=== PATIENT | female | born 1940 | race Caucasian/White ===

== ENCOUNTER 2019-10-28 15:28 | Inpatient (IN) | payer MEDICARE, BC, SELFPAY ==
--- NOTE | ~2019-10-28 | NM_ITS ---
EXAMINATION: NM renal flow and function DATE: 10/29/2019 16:08 INDICATION: Acute renal insufficiency. TECHNIQUE: 7.4 mCi Tc-99m MAG3 was administered IV. The patient was scanned in the supine position. A posterior abdominal radionuclide angiogram was obtained. A subsequent time course of static images of the kidneys, ureters, and bladder was obtained. COMPARISON: None FINDINGS: The posterior abdominal radionuclide angiogram and sequential static images show decreased size of the right kidney. Peak renal parenchymal uptake was 20 min in right kidney and 2 min in left kidney (normal peak 3-5 minutes). The relative early renal uptake was 17% on the right and 83% on th e left (<40% is abnormal). No abnormalities of the ureters or bladder are seen. T1/2 for clearance of activity from the right kidney and proximal collecting system could not be kartik ured. T1/2 for clearance of activity from the left kidney and proximal collecting system was 10 minutes. IMPRESSION: 1. Moderate atrophy of right kidney, which provides 17% of total renal function. Reviewed, dictated and finalized at location A. IMPRESSION: 1. Moderate atrophy of right kidney, which provides 17% of total renal functio n.
--- NOTE | ~2019-10-28 | XR_ITS ---
EXAMINATION: XR chest 2V DATE: 10/30/2019 10:58 INDICATION: Shortness of breath TECHNIQUE: frontal and lateral views of the chest were obtained. COMPARISON: None FINDINGS: Mild hyperexpansion of lungs. No focal airspace opacities, pleural effusion, pulmonary edema or pneum othorax. The cardiomediastinal silhouette is normal. Mild thoracic spondylosis. Cholecystectomy clips in the right upper quadrant. IMPRESSION: 1. No acute cardiopulmonary disease. Reviewed, dictated and finalized at location B.
[2019-10-28 15:32] VITALS: BP 156/80; PULSE 68; RESP 18; TEMP 36.8; O2SAT 100
[2019-10-28 15:54] LABS: Basophils Absolute Auto 0.1 K/mm3 (0.0-0.1); Basophils Percent Auto 0.5 % (0.2-1.2); Eosinophils Absolute Auto 0.1 K/mm3 (0-0.3); Eosinophils Percent Auto 0.6 % (0-4.4); Hematocrit 38.3 % (37.0-47.0); Hemoglobin 13.9 g/dL (12.0-15.0); Immature Granulocyte Absolute 0.03 K/mm3 (0.00-0.031); Immature Granulocyte Percent A 0.3 % (0-0.5); Lymphocytes Absolute Auto 2.33 K/mm3 (0.9-3.2); Lymphocytes Percent Auto 20.9 % (18.3-44.2); Mean Corpuscular HGB Conc 36.3 g/dl (32-36); Mean Corpuscular Hemoglobin 30.5 pg (26-34); Mean Corpuscular Volume 84.2 fl (80-100); Mean Platelet Volume 9.4 fl (7.4-10.4); Monocytes Absolute Auto 0.9 K/mm3 (0.1-0.6); Monocytes Percent Auto 8.3 % (2.6-8.5); Neutrophils Absolute Auto 7.7 K/mm3 (1.3-6.7); Neutrophils Percent Auto 69.4 % (45.5-73.1); Platelet Count Result 354 k/mm3 (150-375); Red Blood Count 4.55 M/mm3 (4.2-5.4); Red Cell Distribution Width 11.4 % (11.5-14.5); White Blood Count 11.2 K/mm3 (4.5-10.0)
[2019-10-28 16:07] LABS: Anion Gap 14 mmol/L (8-16); Blood Urea Nitrogen 18 mg/dL (7-17); Calcium 9.4 mg/dL (8.4-10.2); Carbon Dioxide 26 mmol/L (22-30); Chloride 80 mmol/L (98-107); Estimated Glomerular Filt Rate 48; Glucose 114 mg/dL (65-105); Potassium 3.8 mmol/L (3.4-5.0); Sodium 120 mmol/L (137-145)
--- NOTE | 2019-10-28 16:13 | ED.RECABL ---
HPI - Recheck/Abnormal Lab/Rx General Chief Complaint: Recheck/Abnormal Lab/Rx Stated Complaint: low sodium Time Seen by Provider: 10/28/19 15:56 History of Present Illness HPI narrative: She had labs drawn today to monitor her creatinine following a CT angiogram . She was called at home due to low sodium and told that she needed to come to the emergency department to be seen. She says that she has been drinking extra water since getting contrast. She has been feeling weak, dizzy, and occasionally fuzzy. Related Data Home Medications Medication Instructions Recorded Confirmed atenolol 25 mg PO DAILY 10/28/19 atorvastatin 10 mg PO DAILY 10/28/19 calcium carbonate [Calcium 500] 500 mg PO DAILY 10/28/19 cholecalciferol (vitamin D3) 25 mcg PO DAILY 10/28/19 [Vitamin D3] hydrochlorothiazide 25 mg PO DAILY 10/28/19 multivitamin [Multiple Vitamins] 1 tablet PO DAILY 10/28/19 olmesartan 40 mg PO DAILY 10/28/19 trazodone 50 mg PO HS 10/28/19 Allergies Allergy/AdvReac Type Severity Reaction Status Date / Time Sulfa (Sulfonamide Allergy Rash Verified 10/28/19 15:40 Antibiotics) terazosin Allergy Unknown Verified 10/28/19 15:40 Review of Systems Review of Systems: All systems reviewed & are unremarkable except as noted in HPI and below Constitutional: Constitutional: Denies chills, Denies fever(s) and Reports weakness Cardiovascular: Cardiovascular: Denies chest pain Respiratory: Respiratory: Denies dyspnea Gastrointestinal: Gastrointestinal: Denies abdominal pain, Denies constipation, Denies diarrhea, Reports nausea and Denies vomiting Genitourinary: Genitourinary: Reports nocturia, Denies dysuria and Denies urinary incontinence Musculoskeletal: Musculoskeletal: Denies back pain Neurologic: Reports weakness PMFSH Past Medical History Medical History (Updated 10/28/19 @ 17:33 by Adiel Terry MD) CKD (chronic kidney disease) HTN (hypertension) Social History Social History Gender identity (if verbalized by the patient): Female Exam Const: General: no acute distress and alert Nutritional Appearance: thin Orientation/consciousness: patient oriented x3 HENMT: Head: normal to inspection Resp: Effort & Inspection: normal respiratory effort Auscultation: clear to auscultation bilaterally Cardio: Rate: regular rate Rhythm: regular rhythm GI: Other: soft, nontender Skin: General skin exam: normal color Neuro: General: patient oriented x3, moves all extremities and CN's II-XI intact bilaterally Speech: normal speech Extrem: General: normal to inspection and no edema Course Vital Signs Vital signs: Vital Signs Temperature 36.8 C 10/28/19 15:32 Pulse Rate 68 10/28/19 15:32 Respiratory Rate 18 10/28/19 15:32 Blood Pressure 156/80 H 10/28/19 15:32 Pulse Oximetry 100 10/28/19 15:32 Temperature 36.8 C 10/28/19 15:32 Pulse Rate 68 10/28/19 15:32 Respiratory Rate 18 10/28/19 15:32 Blood Pressure 156/80 H 10/28/19 15:32 Pulse Oximetry 100 10/28/19 15:32 MDM - Recheck/Abnormal Lab/Rx MDM Narrative Medical decision making narrative: Case discussed with Dr. Jaffe. Will gently hydrate, hold HCTZ, and recheck labs Medical Records Attestation: I reviewed the patient's medical records. Lab Data Attestation: I reviewed the patient's lab results. Result diagrams: 10/28/19 15:46 10/28/19 15:46 Labs: Lab Results 10/28/19 10/28/19 Range/Units 15:46 15:46 WBC 11.2 H (4.5-10.0) K/mm3 RBC 4.55 (4.2-5.4) M/mm3 Hgb 13.9 (12.0-15.0) g/dL Hct 38.3 (37.0-47.0) % MCV 84.2 (80-100) fl MCH 30.5 (26-34) pg MCHC 36.3 H (32-36) g/dl RDW 11.4 L (11.5-14.5) % Plt Count 354 (150-375) k/mm3 MPV 9.4 (7.4-10.4) fl Immature Gran % (Auto) 0.3 (0-0.5) % Neut % (Auto) 69.4 (45.5-73.1) % Lymph % (Auto) 20.9 (18.3-44.2) % Mo
[2019-10-28] MEDS: SODIUM CHLORIDE 0.9% IV 1,000 ML 50 ML IV CONT ×2 (16:38→22:17)
[2019-10-28 17:37] LABS: Add Urine Microscopic? YES; Appearance Urine Clear (Clear); Bacteria Urine Trace /hpf; Bilirubin Urine Negative (Negative); Blood Urine Negative (Negative); Color Urine Straw (Yellow); Glucose Urine UA Negative (Negative); Ketones Urine Negative (Negative); Leukocyte Esterase Ur Negative LEU/UL (Negative); Mucus Urine Rare /lpf; Nitrate Urine Negative (Negative); Protein Urine Negative (Negative); Specific Grav Ur 1.006 (1.001-1.035); Squamous Epithelial Cell Urine Rare /hpf (Few); Urobilinogen Urine Negative mg/dL (<2.0); WBC Urine 0-3 /hpf
[2019-10-28 17:38] LABS: Creatinine Urine 44.1 mg/dL
[2019-10-28 17:39] LABS: Sodium Urine Random 30 meq/L
--- NOTE | 2019-10-28 19:19 | PC.NURSE ---
report received at this time. pt ambulatory to restroom independently without difficulty. awaiting to go upstairs. pt in NAD.
--- NOTE | 2019-10-28 19:52 | ADMGEN ---
This patient, Carlyn Mendes, was admitted to Medical Room 245-. Patient/family oriented to hospital policies and general routines including ID bracelet, bed and alarms, visiting hours, pain management, procedures, bathroom and other care routines, personal items, smoking policy, room service/diet, and visiting hours. Valuables list has been completed. Information on how to activate the Rapid Response Team has been discussed. Patient/Family are encouraged to report perceived risks to care and to ask questions if they do not understand what they are told or what they should do.
[2019-10-28 20:31] LABS: Anion Gap 12 mmol/L (8-16); Blood Urea Nitrogen 16 mg/dL (7-17); Calcium 9.5 mg/dL (8.4-10.2); Carbon Dioxide 24 mmol/L (22-30); Chloride 86 mmol/L (98-107); Estimated Glomerular Filt Rate 54; Glucose 119 mg/dL (65-105); Potassium 4.2 mmol/L (3.4-5.0); Sodium 122 mmol/L (137-145)
[2019-10-28 22:00] VITALS: BP 180/58; PULSE 58; RESP 18; TEMP 36.5; O2SAT 98
[2019-10-28 22:51] LABS: Potassium 3.3 mmol/L (3.4-5.0)
--- NOTE | 2019-10-28 22:55 | PM.IMHP ---
H&P: HPI History of Present Illness Date/Time: 10/28/19 22:55 Chief complaint: hyponatremia Narrative: This is a pleasant 78 year old female with known history of CKD stage III, HTN, and hyperlipidemia who presented to the hospital for abnormal labs. The patient just underwent a CT abd/pelvis w/ contrast and was told to go home and drink plenty of fluids. Apparently she believes she consumed about 10 liters of water. Her Line Manager, Dr. Jaffe had her metabolic panel checked and found that her serum sodium was low and referred her to the hospital. On arrival to the hospital the patient was found to have a serum sodium of 120 mEq/dl. She denies any previous history of low serum sodium. She does report over the past few days has been feeling dizzy but she denies any recent seizure like activity, head trauma, or passing out. The patient is on hydochlorothiazide for her hypertension. She denies any other symptoms such as fevers, chills, cough, chest pain, shortness of breath, nausea, vomiting, diarrhea, rectal bleeding or focal neurological symptoms. No other complaints. Review of Systems Review of Systems: All systems reviewed & are unremarkable except as noted in HPI and below PMFSH Past Medical History Medical History (Updated 10/29/19 @ 03:48 by Jose Alberto Lynn MD) CKD (chronic kidney disease) HTN (hypertension) Family History Family History Father Hypertension Dementia Mother Hypertension Heart attack Diabetes mellitus Social History Social History Smoking status: Never smoker Second hand tobacco smoke exposure: Yes (, father) Alcohol intake: never Substance use: never Gender identity (if verbalized by the patient): Female Spiritual care concerns: No Meds Home Medications and Allergies Home Medications Medication Instructions Recorded Confirmed Type atenolol 25 mg PO DAILY 10/28/19 10/28/19 History atorvastatin 10 mg PO DAILY 10/28/19 10/28/19 History calcium carbonate [Calcium 500] 500 mg PO DAILY 10/28/19 10/28/19 History cholecalciferol (vitamin D3) 25 mcg PO DAILY 10/28/19 10/28/19 History [Vitamin D3] hydrochlorothiazide 25 mg PO DAILY 10/28/19 10/28/19 History multivitamin [Multiple Vitamins] 1 tablet PO DAILY 10/28/19 10/28/19 History olmesartan 40 mg PO DAILY 10/28/19 10/28/19 History trazodone 50 mg PO HS 10/28/19 10/28/19 History Allergies Allergy/AdvReac Type Severity Reaction Status Date / Time Sulfa (Sulfonamide Allergy Rash Verified 10/28/19 15:40 Antibiotics) terazosin Allergy Unknown Verified 10/28/19 15:40 Vital Signs Vital Signs - 24 hr 10/28/19 15:32 10/28/19 22:00 Temperature 36.8 C 36.5 C Pulse Rate 68 58 L Respiratory Rate 18 18 Blood Pressure 156/80 H 180/58 H Pulse Oximetry 100 98 Exam Const: General: cooperative, healthy appearing, no acute distress, alert and awake Nutritional Appearance: well nourished Orientation/consciousness: patient oriented x3 HENMT: Head: normal to inspection General nose exam: Normal external nose present Face and sinus: normal facial exam Mouth: Yes Normal oral and palatal mucosa present and Yes oropharynx normal Eyes: Pupils: Equal, round and reactive pupils present EOM: EOMs intact bilaterally Neck: Neck: supple and no JVD Thyroid: thyroid normal Lymphatic: lymphadenopathy not noted Resp: Effort & Inspection: normal respiratory effort Auscultation: clear to auscultation bilaterally Cardio: Rate: regular rate Rhythm: regular rhythm Heart sounds: no murmurs GI: Inspection: normal to inspection Auscultation: normal bowel sounds Skin: General skin exam: normal color and no rashes or lesions noted Neuro: General: patient oriented x3 Cranial nerves: Yes CN's II-XII intact bilaterally and Yes Equal, round and reactive pupils present Speech: normal speech Motor exam (ne
[2019-10-28 22:56] LABS: Anion Gap 11 mmol/L (8-16); Blood Urea Nitrogen 14 mg/dL (7-17); Carbon Dioxide 25 mmol/L (22-30); Chloride 88 mmol/L (98-107); Estimated Glomerular Filt Rate 54; Glucose 130 mg/dL (65-105); Sodium 124 mmol/L (137-145)
[2019-10-28 23:09] LABS: Alveolar/Arterial O2 Gradient 14.8 mmHg; Base Excess ABG -4.1 mEq/l (+/-2.0); Fractional Inspired Oxygen 21 %; Oxygen Content ABG 17.4 %vol (16.0-22.0); Oxygen Saturation ABG 97.3 % (95.0-100.0); Oxyhemoglobin 96.2 % THb (90.0-100.0); PCO2 ABG 33.5 mmHg (35.0-45.0); PO2 ABG 94.8 mmHg (80.0-100.0); PO2 FiO2 Ratio Arterial Blood 4.51 %; Total Hemoglobin 12.8 g/dL (12.0-18.0); pH ABG 7.394 (7.350-7.450)
[2019-10-28 23:11] LABS: Device ROOM AIR; Modified Allen's Test Pass; Site Drawn LEFT RADIAL
[2019-10-29 00:05] LABS: Sodium Urine Random 37 meq/L
[2019-10-29 02:30] LABS: Sodium 125 mmol/L (137-145)
[2019-10-29 05:48] VITALS: BP 162/55; PULSE 66; RESP 16; TEMP 36.1; O2SAT 100
[2019-10-29 05:48] LABS: Basophils Percent Auto 0.3 % (0.2-1.2); Eosinophils Percent Auto 0.2 % (0-4.4); Hematocrit 34.6 % (37.0-47.0); Hemoglobin 12.4 g/dL (12.0-15.0); Immature Granulocyte Absolute 0.03 K/mm3 (0.00-0.031); Immature Granulocyte Percent A 0.3 % (0-0.5); Lymphocytes Absolute Auto 1.99 K/mm3 (0.9-3.2); Lymphocytes Percent Auto 21.3 % (18.3-44.2); Mean Corpuscular HGB Conc 35.8 g/dl (32-36); Mean Corpuscular Hemoglobin 29.9 pg (26-34); Mean Corpuscular Volume 83.4 fl (80-100); Mean Platelet Volume 9.1 fl (7.4-10.4); Monocytes Absolute Auto 0.6 K/mm3 (0.1-0.6); Monocytes Percent Auto 6.8 % (2.6-8.5); Neutrophils Absolute Auto 6.6 K/mm3 (1.3-6.7); Neutrophils Percent Auto 71.1 % (45.5-73.1); Platelet Count Result 292 k/mm3 (150-375); Red Blood Count 4.15 M/mm3 (4.2-5.4); Red Cell Distribution Width 11.2 % (11.5-14.5); White Blood Count 9.3 K/mm3 (4.5-10.0)
[2019-10-29 06:09] LABS: Anion Gap 8 mmol/L (8-16); Blood Urea Nitrogen 12 mg/dL (7-17); Calcium 9.1 mg/dL (8.4-10.2); Carbon Dioxide 26 mmol/L (22-30); Chloride 90 mmol/L (98-107); Estimated Glomerular Filt Rate > 60; Glucose 97 mg/dL (65-105); Potassium 3.8 mmol/L (3.4-5.0); Sodium 124 mmol/L (137-145)
--- NOTE | 2019-10-29 08:20 | PM.CNNEP ---
Assessment and Plan Assessment and plan (1) Acute hyponatremia: Code(s): E87.1 - Hypo-osmolality and hyponatremia Status: Acute Assessment and Plan: The patient has a very low sodium. I suspect that this is due to hydrochlorothiazide and the patient pushing the fluids. At this point her sodium is not giving her any symptoms. The hydrochlorothiazide has been discontinued and the patient received some IV fluids last night. I would not be surprised if she was a little bit dehydrated on admission because she has not been eating very much. Now the IV fluids have been discontinued. She is on a fluid restriction. Because she was on hydrochlorothiazide, she might be at high risk for auto correction so I think we can lessen the fluid restriction. I will check another sodium at noon and we will see how she is looking. We do not want the sodium to correct too quickly. We will shoot for less than 8 per 24 hour period. The patient is also on trazodone which can sometimes cause hyponatremia as well. This is a long-term medication and so I do not think that this is playing much of a role. This is on hold right now but she can prior resume this at discharge. I told the patient that in the long run that she should just drink if thirsty and not if she is not. to make shows no other causes I will check a TSH, cortisol, serum protein electrophoresis. (2) CKD (chronic kidney disease): Qualifiers: Chronic kidney disease stage: stage 3 (moderate) Qualified Code(s): N18.3 - Chronic kidney disease, stage 3 (moderate) Code(s): N18.9 - Chronic kidney disease, unspecified Status: Chronic Assessment and Plan: The patient has chronic kidney disease. Her creatinine is stable. This is probably from her hypertension and that small kidney. (3) HTN (hypertension): Qualifiers: Hypertension type: unspecified Qualified Code(s): I10 - Essential (primary) hypertension Code(s): I10 - Essential (primary) hypertension Status: Chronic Assessment and Plan: The patient has significant hypertension. Her blood pressure at home was good. Now it is high. I will ask that she bring her blood pressure cuff in to have it compared to hours. If they are comparable then I would assume that her high blood pressure now is due to her anxiety. Hopefully things will calm down. What to do with that right renal artery stenosis is unclear right now. She seems to have tolerated the contrast so that is not a barrier. I will check a renal scan to be sure that that right kidney is reasonably viable. If not we can just treat medically. But if his it is contributing a significant amount of renal function then we should probably do angioplasty and stent. This can be done at [facility] down the line. (4) Hyperlipidemia: Qualifiers: Hyperlipidemia type: unspecified Qualified Code(s): E78.5 - Hyperlipidemia, unspecified Code(s): E78.5 - Hyperlipidemia, unspecified Status: Chronic Assessment and Plan: The patient is on atorvastatin Additional Plan long discussion with the patient about all these issues. History of Present Illness Reason for Consult Consult date: 10/29/19 Chief Complaint Chief complaint: hyponatremia History of Present Illness Narrative: Carlyn is a very pleasant 78-year-old lady who has hypertension for many years, chronic kidney disease with a baseline GFR in the 40s, anxiety, depression, who recently has come under my care because her blood pressure became difficult to control. She had evaluation at a different hospital but basically shows that she has 1 smallish kidney on the right, and a CT angiogram of the abdomen showed severe renal artery stenosis to that right kidney. She had that CT scan last week and because of her lower GFR I ordered a basic metabolic panel for her to have done yesterday. This showed that her creatinine was stable however her
[2019-10-29] MEDS: OLMESARTAN MEDOXOMIL 20 MG TABLET 40 MG PO (08:55)
[2019-10-29] MEDS: atenoloL 25 MG TABLET PO (08:56)
[2019-10-29] MEDS: CHOLECALCIFEROL 1,000 UNITS TABLET 1000 UNITS PO (08:56)
[2019-10-29] MEDS: ATORVASTATIN 10 MG TABLET PO (08:56)
[2019-10-29] MEDS: MULTIVITAMINS THERAPEUTIC TAB (*BKC) 1 TABLET PO (08:56)
[2019-10-29] MEDS: CALCIUM CARBONATE (OSCAL) 500 MG TABLET PO (08:56)
[2019-10-29 09:00] VITALS: BP 136/64; PULSE 71
[2019-10-29 10:37] VITALS: BMI 22.3
[2019-10-29 12:05] LABS: Sodium 126 mmol/L (137-145)
[2019-10-29 14:00] VITALS: BP 135/52; PULSE 65; RESP 14; TEMP 37.2; O2SAT 100
--- NOTE | 2019-10-29 16:38 | PM.IMPN ---
Progress Note: A&P Assessment and Plan (1) Acute hyponatremia: Code(s): E87.1 - Hypo-osmolality and hyponatremia Status: Acute Assessment and Plan: Appears to be secondary to a large amount of free water consumption as well as hydrochlorothiazide use. Sodium on arrival is 120 and it improved today to 126. Nephrology was consulted for further evaluation and because they were the ones to center in to the hospital. Dr. Jaffe discontinued her IV fluids, placed her on a fluid restriction and discontinued her hydrochlorothiazide. We will continue monitoring her sodium every 6 hours and ensure that it does not increase by more than 8 in a 24 hour period. Will also hold her trazodone which can cause low sodium until it is back within normal range. He also ordered TSH, cortisol, serum protein electrophoresis The patient is otherwise asymptomatic at this time without any complaints. Continue monitoring. Total fluid restriction. Nephrology input is greatly appreciated. (2) CKD (chronic kidney disease): Qualifiers: Chronic kidney disease stage: stage 3 (moderate) Qualified Code(s): N18.3 - Chronic kidney disease, stage 3 (moderate) Code(s): N18.9 - Chronic kidney disease, unspecified Status: Chronic Assessment and Plan: Patient has a history of CKD stage 3 and follows with nephrology as an outpatient. Cr appears to be at baseline, 0.9. Monitor renal function and urine output. Avoid nephrotoxic agents. Renally dose medications. (3) HTN (hypertension): Qualifiers: Hypertension type: unspecified Qualified Code(s): I10 - Essential (primary) hypertension Code(s): I10 - Essential (primary) hypertension Status: Chronic Assessment and Plan: Nephrology is concerned about her hypertension while in the hospital. Could be secondary to her underlying anxiety. Dr. Jaffe had her bring her blood pressure cuff into the hospital so they can compare her readings with hours She does have history of right renal artery stenosis and he ordered a nuclear medicine renal scan for further evaluation. If it continues to be an issue along with hypertension she may need to follow-up with vascular for an angioplasty and stent placement down the line. Monitor blood pressure. Continue atenolol and olmesartan. PRN IV hydralazine w/ parameters. (4) Hyperlipidemia: Qualifiers: Hyperlipidemia type: unspecified Qualified Code(s): E78.5 - Hyperlipidemia, unspecified Code(s): E78.5 - Hyperlipidemia, unspecified Status: Chronic Assessment and Plan: Continue atorvastatin. (5) Anxiety: Code(s): F41.9 - Anxiety disorder, unspecified Status: Acute Assessment and Plan: Patient is a very anxious at this time about everything going on, being in the hospital and about her kidneys. Will order p.r.n. Ativan for her anxiety. Continue monitoring the patient's symptoms. (6) Insomnia: Code(s): G47.00 - Insomnia, unspecified Status: Acute Assessment and Plan: Patient states she has not slept overnight. She usually takes trazodone by told her we are holding this medication since again cause hyponatremia. Will order melatonin and if that is not help will have p.r.n. Benadryl. If both those medications do not help her sleep then she can be given Ativan. Will continue monitoring her symptoms. Time Spent With Patient Time with patient: 25 - 35 minutes Subjective Date/time seen: 10/29/19 16:38 Interval history: Date of Service 10/29/2019: The patient is very nervous and anxious about being in the hospital. She denies any other symptoms at this time. She denies any chest pain, shortness of breath, cou
[2019-10-29 18:28] LABS: Sodium 124 mmol/L (137-145)
[2019-10-29] MEDS: MELATONIN 5 MG TABLET PO (21:12)
[2019-10-29 22:00] VITALS: BP 145/56; PULSE 65; RESP 20; TEMP 36.6; O2SAT 100
[2019-10-30 01:11] LABS: Sodium 126 mmol/L (137-145)
[2019-10-30 05:51] VITALS: BP 146/81; PULSE 73; RESP 20; TEMP 36.8; O2SAT 98
[2019-10-30 05:51] LABS: Hematocrit 36.9 % (37.0-47.0); Mean Corpuscular HGB Conc 35.2 g/dl (32-36); Mean Corpuscular Hemoglobin 29.8 pg (26-34); Mean Corpuscular Volume 84.6 fl (80-100); Platelet Count Result 318 k/mm3 (150-375); Red Blood Count 4.36 M/mm3 (4.2-5.4); Red Cell Distribution Width 11.4 % (11.5-14.5); White Blood Count 11.4 K/mm3 (4.5-10.0)
[2019-10-30 06:00] LABS: Sodium 125 mmol/L (137-145)
[2019-10-30 06:13] LABS: Albumin Level 4.5 g/dL (3.5-5.1); Anion Gap 10 mmol/L (8-16); Blood Urea Nitrogen 12 mg/dL (7-17); Calcium 9.7 mg/dL (8.4-10.2); Carbon Dioxide 26 mmol/L (22-30); Chloride 89 mmol/L (98-107); Estimated Glomerular Filt Rate 54; Glucose 107 mg/dL (65-105); Phosphorus 3.8 mg/dL (2.5-4.5); Potassium 3.9 mmol/L (3.4-5.0); Sodium 125 mmol/L (137-145)
[2019-10-30] MEDS: ATORVASTATIN 10 MG TABLET PO (08:05)
[2019-10-30] MEDS: CALCIUM CARBONATE (OSCAL) 500 MG TABLET PO (08:05)
[2019-10-30] MEDS: CHOLECALCIFEROL 1,000 UNITS TABLET 1000 UNITS PO (08:05)
[2019-10-30] MEDS: MULTIVITAMINS THERAPEUTIC TAB (*BKC) 1 TABLET PO (08:05)
[2019-10-30] MEDS: atenoloL 25 MG TABLET PO (08:06)
[2019-10-30] MEDS: OLMESARTAN MEDOXOMIL 20 MG TABLET 40 MG PO (08:06)
--- NOTE | 2019-10-30 09:14 | PM.PNNEP ---
Progress Note: A&P Assessment and Plan (1) Acute hyponatremia: Code(s): E87.1 - Hypo-osmolality and hyponatremia Status: Acute Assessment and Plan: The patient has a very low sodium. TSH and cortisol are okay. SPEP is pending. This is probably due to the hydrochlorothiazide and pushing fluids. sodium is 125 today. Recovery from this has stalled. This should be continuing to improve. Will check a chest x-ray and MRI brain to complete the workup. (2) CKD (chronic kidney disease): Qualifiers: Chronic kidney disease stage: stage 3 (moderate) Qualified Code(s): N18.3 - Chronic kidney disease, stage 3 (moderate) Code(s): N18.9 - Chronic kidney disease, unspecified Status: Chronic Assessment and Plan: The patient has chronic kidney disease. Her creatinine is actually improved. This may be from bedrest and reduced creatinine production from reduced muscle turnover (3) HTN (hypertension): Qualifiers: Hypertension type: unspecified Qualified Code(s): I10 - Essential (primary) hypertension Code(s): I10 - Essential (primary) hypertension Status: Chronic Assessment and Plan: The patient has significant hypertension. her blood pressure is under good control with medication. She has a right renal artery stenosis. Renal scan shows that this kidneys only contributing 17% to the overall function. Considering that this kidney is small , and contributing only 17%, and her blood pressure is under good control,, I think that an angiogram and stent would have more risk than benefit. (4) Hyperlipidemia: Qualifiers: Hyperlipidemia type: unspecified Qualified Code(s): E78.5 - Hyperlipidemia, unspecified Code(s): E78.5 - Hyperlipidemia, unspecified Status: Chronic Assessment and Plan: The patient is on atorvastatin Additional Plan long discussion with the patient about all these issues. Subjective Date/time seen: 10/30/19 09:14 Interval history: Patient is feeling better today. She is still anxious but not so much today. No chest pain or shortness of breath. Review of Systems Cardiovascular: Cardiovascular: Reports no additional cardiovascular complaints Respiratory: Respiratory: Reports no additional respiratory complaints Gastrointestinal: Gastrointestinal: Reports no additional gastrointestinal complaints Genitourinary: Genitourinary: Reports no additional female genitourinary complaints Exam Narrative: Exam Narrative: Well developed well-nourished female lying in hospital bed in no acute distress Skin is warm and dry without rash Lungs are symmetric and clear. Heart regular rate and rhythm no rub or gallop. Abdomen bowel sounds positive soft nontender Extremities no edema Objective Data Vital Signs Vital Signs: Vital Signs - 24 hr 10/29/19 14:00 10/29/19 22:00 10/30/19 05:51 Temperature 37.2 C 36.6 C 36.8 C Pulse Rate 65 65 73 Respiratory Rate 14 20 20 Blood Pressure 135/52 L 145/56 H 146/81 H Pulse Oximetry 100 100 98 Intake/Output Intake/Output: Intake & Output 10/27/19 10/28/19 10/29/19 10/30/19 23:59 23:59 23:59 23:59 Intake Total 50 0 500 Output Total 1450 200 Balance 50 -1450 300 Meds/Results Medications: Active Medications Generic Name Dose Route Start Last Admin Trade Name Freq PRN Reason Stop Dose Admin Acetaminophen 650 mg 10/28/19 22:54 Tylenol Tablet PO Q4H PRN Mild Pain (1-3) or Fever Atenolol 25 mg 10/29/19 09:00 10/30/19 08:06 Tenormin PO 25 mg DAILY LEBRON Administration Atorvastatin Calcium 10 mg 10/29/19 09:00 10/30/19 08:05 Lipitor PO 10 mg DAILY LEBRON Administration Calcium Carbonate 500 mg 10/29/19 09:00 10/30/19 08:05 Oscal 500 Mg PO 500 mg DAILY LEBRON Administration Diphenhydramine HCl 50 mg 10/29/19 16:48 Benadryl Cap PO Q6H PRN Itching/
[2019-10-30 12:06] LABS: Sodium 127 mmol/L (137-145)
[2019-10-30 13:31] VITALS: BP 142/51; PULSE 66; RESP 16; TEMP 36.6; O2SAT 100
--- NOTE | 2019-10-30 14:23 | PM.IMPN ---
Progress Note: A&P Assessment and Plan (1) Acute hyponatremia: Code(s): E87.1 - Hypo-osmolality and hyponatremia Status: Acute Assessment and Plan: Appears to be secondary to a large amount of free water consumption as well as hydrochlorothiazide use. Sodium on arrival is 120 and it improved today to 127 this afternoon. Nephrology was consulted for further evaluation and because they were the ones to center in to the hospital. Dr. Jaffe discontinued her IV fluids, placed her on a fluid restriction and discontinued her hydrochlorothiazide. We will continue monitoring her sodium every 6 hours and ensure that it does not increase by more than 8 in a 24 hour period. Will also hold her trazodone which can cause low sodium until it is back within normal range. He also ordered TSH which was normal, cortisol which was normal, serum protein electrophoresis which is pending The patient is otherwise asymptomatic at this time without any complaints. Continue monitoring. Total fluid restriction. Nephrology input is greatly appreciated. (2) CKD (chronic kidney disease): Qualifiers: Chronic kidney disease stage: stage 3 (moderate) Qualified Code(s): N18.3 - Chronic kidney disease, stage 3 (moderate) Code(s): N18.9 - Chronic kidney disease, unspecified Status: Chronic Assessment and Plan: Patient has a history of CKD stage 3 and follows with nephrology as an outpatient. Cr appears to be at baseline, 1.0 Patient states she has not really been drinking anything and has little urine output today. Instructed the patient that she needs to drink more at least 1 L to 500 cc per day to prevent dehydration and other issues. She says she will increase her fluid intake today. Monitor renal function and urine output. Avoid nephrotoxic agents. Renally dose medications. (3) HTN (hypertension): Qualifiers: Hypertension type: unspecified Qualified Code(s): I10 - Essential (primary) hypertension Code(s): I10 - Essential (primary) hypertension Status: Chronic Assessment and Plan: Nephrology is concerned about her hypertension while in the hospital. Could be secondary to her underlying anxiety. Her blood pressure is slightly better today and was 146/81 this morning for her medications were given. Dr. Jaffe had her bring her blood pressure cuff into the hospital so they can compare her readings with hours She does have history of right renal artery stenosis and he ordered a nuclear medicine renal scan for further evaluation. Nuclear medicine scan showed her right kidney was function at 17%. Dr. Jaffe will further evaluate this and see if she should required angioplasty and possible stent placement for her renal artery stenosis in the future. Monitor blood pressure. Continue atenolol and olmesartan. PRN IV hydralazine w/ parameters. (4) Hyperlipidemia: Qualifiers: Hyperlipidemia type: unspecified Qualified Code(s): E78.5 - Hyperlipidemia, unspecified Code(s): E78.5 - Hyperlipidemia, unspecified Status: Chronic Assessment and Plan: Continue atorvastatin. (5) Anxiety: Code(s): F41.9 - Anxiety disorder, unspecified Status: Acute Assessment and Plan: Patient is a very anxious at this time about everything going on, being in the hospital and about her kidneys. Will order p.r.n. Ativan for her anxiety. Continue monitoring the patient's symptoms. (6) Insomnia: Code(s): G47.00 - Insomnia, unspecified Status: Acute Assessment and Plan: Patient states she has not slept overnight. She usually takes trazodone by told her we are holding this medication since again cause hyponat
[2019-10-30 18:47] LABS: Sodium 124 mmol/L (137-145)
[2019-10-30] MEDS: MELATONIN 5 MG TABLET PO (20:35)
[2019-10-30 22:00] VITALS: BP 112/61; PULSE 75; RESP 12; TEMP 37.1; O2SAT 100
[2019-10-31 00:59] LABS: Sodium 126 mmol/L (137-145)
[2019-10-31 05:38] LABS: Hematocrit 34.6 % (37.0-47.0); Hemoglobin 12.1 g/dL (12.0-15.0); Mean Corpuscular Hemoglobin 29.9 pg (26-34); Mean Corpuscular Volume 85.4 fl (80-100); Mean Platelet Volume 9.2 fl (7.4-10.4); Platelet Count Result 317 k/mm3 (150-375); Red Blood Count 4.05 M/mm3 (4.2-5.4); Red Cell Distribution Width 11.5 % (11.5-14.5)
[2019-10-31 05:50] LABS: Albumin Level 4.1 g/dL (3.5-5.1); Anion Gap 7 mmol/L (8-16); Blood Urea Nitrogen 14 mg/dL (7-17); Calcium 9.5 mg/dL (8.4-10.2); Carbon Dioxide 28 mmol/L (22-30); Chloride 92 mmol/L (98-107); Estimated Glomerular Filt Rate > 60; Glucose 101 mg/dL (65-105); Phosphorus 3.5 mg/dL (2.5-4.5); Potassium 4.2 mmol/L (3.4-5.0); Sodium 127 mmol/L (137-145)
[2019-10-31 06:00] VITALS: BP 140/54; PULSE 69; RESP 12; TEMP 36.9; O2SAT 100
[2019-10-31 06:26] LABS: Osmolality, Urine 169 mOsm/kg (50-1200)
[2019-10-31 08:57] VITALS: PULSE 69
[2019-10-31] MEDS: atenoloL 25 MG TABLET PO (08:57)
[2019-10-31] MEDS: ATORVASTATIN 10 MG TABLET PO (08:58)
[2019-10-31] MEDS: MULTIVITAMINS THERAPEUTIC TAB (*BKC) 1 TABLET PO (08:58)
[2019-10-31] MEDS: OLMESARTAN MEDOXOMIL 20 MG TABLET 40 MG PO (08:58)
[2019-10-31] MEDS: CALCIUM CARBONATE (OSCAL) 500 MG TABLET PO (08:59)
[2019-10-31] MEDS: CHOLECALCIFEROL 1,000 UNITS TABLET 1000 UNITS PO (08:59)
[2019-10-31] MEDS: SODIUM CHLORIDE 3% 500 ML 50 ML IV CONT (10:46)
--- NOTE | 2019-10-31 15:09 | PM.PNNEP ---
Progress Note: A&P Assessment and Plan (1) Acute hyponatremia: Code(s): E87.1 - Hypo-osmolality and hyponatremia Status: Acute Assessment and Plan: The patient had a very low sodium. TSH and cortisol are okay. SPEP is pending. Chest x-ray is clear. She is up-to-date with cancer screening. I ordered an MRI of the brain to check out neurologic possibilities for the low sodium however the patient refused because she is so anxious. She does not have any neurologic symptoms so I think we can hold off on this for now. This is probably due to the hydrochlorothiazide and pushing fluids. She is on fluid restriction and the hydrochlorothiazide has been held. sodium is 127 today. this is very slowly improving. Will give a small amount of 3% saline and recheck the sodium later today. Perhaps we can get her out of the hospital today or tomorrow. (2) CKD (chronic kidney disease): Qualifiers: Chronic kidney disease stage: stage 3 (moderate) Qualified Code(s): N18.3 - Chronic kidney disease, stage 3 (moderate) Code(s): N18.9 - Chronic kidney disease, unspecified Status: Chronic Assessment and Plan: The patient has chronic kidney disease. Her creatinine is actually improved. This may be from bedrest and reduced creatinine production from reduced muscle turnover (3) HTN (hypertension): Qualifiers: Hypertension type: unspecified Qualified Code(s): I10 - Essential (primary) hypertension Code(s): I10 - Essential (primary) hypertension Status: Chronic Assessment and Plan: The patient has significant hypertension. her blood pressure is under good control with medication. She has a right renal artery stenosis. Renal scan shows that this kidneys only contributing 17% to the overall function. Considering that this kidney is small , and contributing only 17%, and her blood pressure is under good control,, I think that an angiogram and stent would have more risk than benefit. Discussed at length with the patient. (4) Hyperlipidemia: Qualifiers: Hyperlipidemia type: unspecified Qualified Code(s): E78.5 - Hyperlipidemia, unspecified Code(s): E78.5 - Hyperlipidemia, unspecified Status: Chronic Assessment and Plan: The patient is on atorvastatin Additional Plan long discussion with the patient about all these issues. Subjective Date/time seen: 10/31/19 15:09 Interval history: Patient is feeling better. Looking back on it she says she was feeling chromic for about a week but did not realize it at the time. She feels great today. She has been up and around in the room she says. She does not like to go out in the hallways because of the COVID-19. Review of Systems Cardiovascular: Cardiovascular: Reports no additional cardiovascular complaints Respiratory: Respiratory: Reports no additional respiratory complaints Gastrointestinal: Gastrointestinal: Reports no additional gastrointestinal complaints Genitourinary: Genitourinary: Reports no additional female genitourinary complaints Exam Narrative: Exam Narrative: Well developed anxious female lying in the hospital bed. Skin is warm and dry without rash. Lungs are symmetric and clear Heart regular rate and rhythm no rub or gallop Abdomen bowel sounds positive soft nontender Extremities no edema Objective Data Vital Signs Vital Signs: Vital Signs - 24 hr 10/30/19 22:00 10/31/19 06:00 10/31/19 08:57 Temperature 37.1 C 36.9 C Pulse Rate 75 69 69 Respiratory Rate 12 12 Blood Pressure 112/61 140/54 L Pulse Oximetry 100 100 Intake/Output Intake/Output: Intake & Output 10/28/19 10/29/19 10/30/19 10/31/19 23:59 23:59 23:59 23:59 Intake Total 50 0 1220 630 Output Total 1450 800 500 Balance 50 -1450 420 130 Meds/Results Medications: Active Medications Generic Name Dose Route
[2019-10-31 16:05] LABS: Sodium 129 mmol/L (137-145)
--- NOTE | 2019-10-31 16:11 | PM.IMPN ---
Progress Note: A&P Assessment and Plan (1) Acute hyponatremia: Code(s): E87.1 - Hypo-osmolality and hyponatremia Status: Acute Assessment and Plan: Appears to be secondary to a large amount of free water consumption as well as hydrochlorothiazide use. He also ordered TSH which was normal, cortisol which was normal, serum protein electrophoresis which is pending Sodium on arrival is 120 and it improved today to 127. Is improving very slowly and I talked to Dr. Jaffe who recommended me giving her sodium chloride 3% 50 cc/hour over 3 hours. Her repeat sodium after that was 129 which is slightly improved. We will continue monitoring her sodium q.6 hours and see if it improves into the 130s by morning. Will continue with oral fluid restriction and discontinued her hydrochlorothiazide and holding her trazodone. We will continue monitoring her sodium every 6 hours and ensure that it does not increase by more than 8 in a 24 hour period. The patient is otherwise asymptomatic at this time without any complaints. Continue monitoring. Total fluid restriction. Nephrology input is greatly appreciated. (2) CKD (chronic kidney disease): Qualifiers: Chronic kidney disease stage: stage 3 (moderate) Qualified Code(s): N18.3 - Chronic kidney disease, stage 3 (moderate) Code(s): N18.9 - Chronic kidney disease, unspecified Status: Chronic Assessment and Plan: Patient has a history of CKD stage 3 and follows with nephrology as an outpatient. Cr appears to be at baseline, 0.9 Patient states her urine output is improved today since she is on the fluid restriction diet. Monitor renal function and urine output. Avoid nephrotoxic agents. Renally dose medications. (3) HTN (hypertension): Qualifiers: Hypertension type: unspecified Qualified Code(s): I10 - Essential (primary) hypertension Code(s): I10 - Essential (primary) hypertension Status: Chronic Assessment and Plan: Nephrology is concerned about her hypertension while in the hospital. Could be secondary to her underlying anxiety. Her blood pressure is slightly better today and was 140's systolic this morning before her medications were given. Dr. Jaffe had her bring her blood pressure cuff into the hospital so they can compare her readings with ours She does have history of right renal artery stenosis and he ordered a nuclear medicine renal scan for further evaluation. Nuclear medicine scan showed her right kidney was function at 17%. Dr. Jaffe will further evaluate this and see if she should required angioplasty and possible stent placement for her renal artery stenosis in the future. Monitor blood pressure. Continue atenolol and olmesartan. PRN IV hydralazine w/ parameters. (4) Hyperlipidemia: Qualifiers: Hyperlipidemia type: unspecified Qualified Code(s): E78.5 - Hyperlipidemia, unspecified Code(s): E78.5 - Hyperlipidemia, unspecified Status: Chronic Assessment and Plan: Continue atorvastatin. (5) Anxiety: Code(s): F41.9 - Anxiety disorder, unspecified Status: Acute Assessment and Plan: Patient is a very anxious at this time about everything going on, being in the hospital and about her kidneys. Will order p.r.n. Ativan for her anxiety. Continue monitoring the patient's symptoms. (6) Insomnia: Code(s): G47.00 - Insomnia, unspecified Status: Acute Assessment and Plan: Patient states she has not slept overnight. She usually takes trazodone by told her we are holding this medication since again cause hyponatremia. Will order melatonin and if that is not help will have p.r.n. Benadryl. If both those med
[2019-10-31 17:45] VITALS: BP 163/70; PULSE 74; RESP 14; TEMP 36.2; O2SAT 100
[2019-10-31] MEDS: MELATONIN 5 MG TABLET PO (20:10)
[2019-10-31 21:52] LABS: Sodium 129 mmol/L (137-145)
[2019-10-31 22:00] VITALS: BP 144/59; PULSE 65; RESP 16; TEMP 36.6; O2SAT 96
[2019-11-01 03:42] LABS: Hematocrit 31.4 % (37.0-47.0); Mean Corpuscular Hemoglobin 30.6 pg (26-34); Mean Corpuscular Volume 87.2 fl (80-100); Mean Platelet Volume 9.2 fl (7.4-10.4); Platelet Count Result 263 k/mm3 (150-375); Red Cell Distribution Width 11.7 % (11.5-14.5); White Blood Count 8.1 K/mm3 (4.5-10.0)
[2019-11-01 03:55] LABS: Albumin Level 3.5 g/dL (3.5-5.1); Anion Gap 7 mmol/L (8-16); Blood Urea Nitrogen 18 mg/dL (7-17); Carbon Dioxide 24 mmol/L (22-30); Chloride 99 mmol/L (98-107); Estimated Glomerular Filt Rate 54; Glucose 87 mg/dL (65-105); Phosphorus 3.5 mg/dL (2.5-4.5); Potassium 4.2 mmol/L (3.4-5.0); Sodium 130 mmol/L (137-145)
[2019-11-01 06:00] VITALS: BP 120/51; PULSE 70; RESP 16; TEMP 36.2; O2SAT 99
[2019-11-01 08:10] VITALS: PULSE 70
[2019-11-01] MEDS: CALCIUM CARBONATE (OSCAL) 500 MG TABLET PO (08:10)
[2019-11-01] MEDS: MULTIVITAMINS THERAPEUTIC TAB (*BKC) 1 TABLET PO (08:10)
[2019-11-01] MEDS: CHOLECALCIFEROL 1,000 UNITS TABLET 1000 UNITS PO (08:10)
[2019-11-01] MEDS: OLMESARTAN MEDOXOMIL 20 MG TABLET 40 MG PO (08:10)
[2019-11-01] MEDS: ATORVASTATIN 10 MG TABLET PO (08:10)
[2019-11-01] MEDS: atenoloL 25 MG TABLET PO (08:10)
--- NOTE | 2019-11-01 09:43 | PM.PNNEP ---
Progress Note: A&P Assessment and Plan (1) Acute hyponatremia: Code(s): E87.1 - Hypo-osmolality and hyponatremia Status: Acute Assessment and Plan: The patient had a very low sodium. TSH and cortisol are okay. SPEP is pending still. Chest x-ray is clear. She is up-to-date with cancer screening. MRI brain refused. No neurologic issues. This is probably due to the hydrochlorothiazide and pushing fluids. She is on fluid restriction and the hydrochlorothiazide has been held. sodium is 130 today. this is very slowly improving. I think it is okay at this level for her to be discharged. She can have some blood work done mid next week and follow up in my office. (2) CKD (chronic kidney disease): Qualifiers: Chronic kidney disease stage: stage 3 (moderate) Qualified Code(s): N18.3 - Chronic kidney disease, stage 3 (moderate) Code(s): N18.9 - Chronic kidney disease, unspecified Status: Chronic Assessment and Plan: The patient has chronic kidney disease. Her creatinine is actually improved. This may be from bedrest and reduced creatinine production from reduced muscle turnover (3) HTN (hypertension): Qualifiers: Hypertension type: unspecified Qualified Code(s): I10 - Essential (primary) hypertension Code(s): I10 - Essential (primary) hypertension Status: Chronic Assessment and Plan: The patient has significant hypertension. her blood pressure is under good control with medication. She has a right renal artery stenosis. Renal scan shows that this kidneys only contributing 17% to the overall function. Considering that this kidney is small , and contributing only 17%, and her blood pressure is under good control,, I think that an angiogram and stent would have more risk than benefit. Will continue to treat with medications alone. (4) Hyperlipidemia: Qualifiers: Hyperlipidemia type: unspecified Qualified Code(s): E78.5 - Hyperlipidemia, unspecified Code(s): E78.5 - Hyperlipidemia, unspecified Status: Chronic Assessment and Plan: The patient is on atorvastatin Additional Plan Subjective Date/time seen: 11/01/19 09:43 Interval history: Patient is feeling better. Eager for discharge. Still anxious but no shortness of breath or chest pain. She is drinking if she is thirsty and not if she is not. She is on a fluid restriction but does not even drink all of that she says. Review of Systems Cardiovascular: Cardiovascular: Reports no additional cardiovascular complaints Respiratory: Respiratory: Reports no additional respiratory complaints Gastrointestinal: Gastrointestinal: Reports no additional gastrointestinal complaints Genitourinary: Genitourinary: Reports no additional female genitourinary complaints Exam Narrative: Exam Narrative: Well developed well-nourished female lying in the hospital bed in no acute distress Lungs are clear Heart regular rate and rhythm no rub or gallop Abdomen bowel sounds positive soft nontender Extremities no edema Skin no rash Objective Data Vital Signs Vital Signs: Vital Signs - 24 hr 10/31/19 17:45 10/31/19 22:00 11/01/19 06:00 Temperature 36.2 C L 36.6 C 36.2 C L Pulse Rate 74 65 70 Respiratory Rate 14 16 16 Blood Pressure 163/70 H 144/59 H 120/51 L Pulse Oximetry 100 96 99 11/01/19 08:10 Temperature Pulse Rate 70 Respiratory Rate Blood Pressure Pulse Oximetry Intake/Output Intake/Output: Intake & Output 10/29/19 10/30/19 10/31/19 11/01/19 23:59 23:59 23:59 23:59 Intake Total 0 1220 1110 240 Output Total 8289 914 3119 Balance -1450 420 -115 240 Meds/Results Medications: Active Medications Generic Name Dose Route Start Last Admin Trade Name Freq PRN Reason Stop Dose Admin Acetaminophen 650 mg 10/28/19 22:54 Tylenol Tablet PO Q4H PRN M
--- NOTE | 2019-11-01 09:51 | PM.DS ---
DS: Admitting Diagnosis Admitting Diagnosis Admitting Diagnosis: hyponatremia DS: Discharge Diagnosis Discharge Diagnosis (1) Acute hyponatremia: Code(s): E87.1 - Hypo-osmolality and hyponatremia Status: Acute Assessment and Plan: Appears to be secondary to a large amount of free water consumption as well as hydrochlorothiazide use. He also ordered TSH which was normal, cortisol which was normal, serum protein electrophoresis which is pending Sodium on arrival is 120 and it improved today to [address] JaffeFeels comfortable the patient being discharged today with her sodium improvement to 130. He recommends her to drink 1500 cc per day, low-sodium diet and to follow-up in his office in 1 week. We will check a BMP in about 5 days for further monitoring of her sodium. Discontinued her hydrochlorothiazide and holding her trazodone. Will prescribe melatonin for her to take at night to help with her sleeping. Patient understands and agrees with the plan all questions answered. (2) CKD (chronic kidney disease): Qualifiers: Chronic kidney disease stage: stage 3 (moderate) Qualified Code(s): N18.3 - Chronic kidney disease, stage 3 (moderate) Code(s): N18.9 - Chronic kidney disease, unspecified Status: Chronic Assessment and Plan: Patient has a history of CKD stage 3 and follows with nephrology as an outpatient. Cr appears to be at baseline, 1.0 (3) HTN (hypertension): Qualifiers: Hypertension type: unspecified Qualified Code(s): I10 - Essential (primary) hypertension Code(s): I10 - Essential (primary) hypertension Status: Chronic Assessment and Plan: Nephrology is concerned about her hypertension while in the hospital. Could be secondary to her underlying anxiety. Her blood pressure is slightly better today and was 120's systolic this morning Will have her check her blood pressure at home 2 times per day and write it down for Dr. Jaffe to evaluate as an outpatient. She does have history of right renal artery stenosis and Nuclear medicine scan showed her right kidney was function at 17%. Dr. Jaffe will further evaluate this and see if she should required angioplasty and possible stent placement for her renal artery stenosis in the future. Patient understands and agrees the plan all questions answered. Continue atenolol and olmesartan. (4) Hyperlipidemia: Qualifiers: Hyperlipidemia type: unspecified Qualified Code(s): E78.5 - Hyperlipidemia, unspecified Code(s): E78.5 - Hyperlipidemia, unspecified Status: Chronic Assessment and Plan: Continue atorvastatin. (5) Anxiety: Code(s): F41.9 - Anxiety disorder, unspecified Status: Acute Assessment and Plan: Patient is a very anxious at this time about everything going on, being in the hospital and about her kidneys. She feels much better since her sodium is back within normal range GB discharged home. (6) Insomnia: Code(s): G47.00 - Insomnia, unspecified Status: Acute Assessment and Plan: Patient states she has not slept overnight. She usually takes trazodone by told her we are holding this medication since again cause hyponatremia. Will continue to hold trazodone and start melatonin which will be prescribed. DS: Summary Hospital Course Reason for hospitalization: Patient is a 78-year-old woman with history of CKD stage 3, renal artery stenosis, hypertension, who presented to the emergency room with abnormal labs showing hyponatremia. She has been drinking an excessive amount of water daily since being told she has CKD an
[2019-11-01 09:55] LABS: Sodium 131 mmol/L (137-145)
--- NOTE | 2019-11-01 11:11 | PC.NURSE ---
Patient stated that she would like to be discharged and her ride is already here. She said that she will get her flu vaccine outpatient.
[2019-11-02 02:21] LABS: Albumin 4.1 g/dL (3.8-4.8); Alpha 1 Globulin 0.3 g/dL (0.2-0.3); Alpha 2 Globulin 0.8 g/dL (0.5-0.9); Beta 1 Globulin 0.5 g/dL (0.4-0.6); Gamma Globulin 0.9 g/dL (0.8-1.7); Protein, Total 6.9 g/dL (6.1-8.1)
== END 2019-11-01 11:13 | disposition home or self-care (01) | DRG 641 ==
LOC: ANHED 17:33 → ANH2MED 10-29 03:58
PROVIDERS: Emergency Medicine; Family Medicine; Internal Medicine Nephrology; Nurse Practitioner; Admitting Provider Internal Medicine; Emergency Provider Emergency Medicine; PCP Family Medicine; Visit Provider Physician Assistant
DX: E87.1 Hypo-osmolality and hyponatremia (principal); T50.2X5A Adverse effect of carbonic-anhydrase inhibitors, benzothiadiazides and other diuretics, initial encounter; N18.3 Chronic kidney disease, stage 3 (moderate); I12.9 Hypertensive chronic kidney disease with stage 1 through stage 4 chronic kidney disease, or unspecified chronic kidney disease; E78.5 Hyperlipidemia, unspecified; F41.9 Anxiety disorder, unspecified; G47.00 Insomnia, unspecified; I70.1 Atherosclerosis of renal artery; Z79.899 Other long term (current) drug therapy
CPT/HCPCS: 36415; 36600; 71046; 78707; 80048; 80069; 81001; 82533; 82570; 82805; 83930; 83935; 84155; 84165; 84295; 84300; 84443; 85025; 85027; 99285; A9270; A9562; G0378; J7030; J7131

== ENCOUNTER 2019-11-11 22:38 | Emergency (ER) | payer MEDICARE, BC, SELFPAY ==
[2019-11-11 23:11] VITALS: BP 151/70; PULSE 80; RESP 20; TEMP 36.9; O2SAT 100
[2019-11-11 23:56] LABS: Add Urine Microscopic? YES; Amorphous Sediment Urine Few; Appearance Urine Cloudy (Clear); Bilirubin Urine Negative (Negative); Blood Urine 3+ (Negative); Color Urine Red (Yellow); Glucose Urine UA Negative (Negative); Ketones Urine Trace mg/dL (Negative); Leukocyte Esterase Ur 3+ LEU/UL (Negative); Nitrate Urine Negative (Negative); Protein Urine 2+ mg/dL (Negative); RBC Urine >75 /hpf (0-2); Specific Grav Ur 1.013 (1.001-1.035); Urobilinogen Urine Negative mg/dL (<2.0); WBC Clumps Urine Present /HPF; WBC Urine >75 /hpf
--- NOTE | 2019-11-12 01:40 | ED.ABDPAIN ---
HPI - Abdominal Pain General Chief Complaint: Urogenital-Female Stated Complaint: hematuria Time Seen by Provider: 11/12/19 01:34 Source: patient Mode of arrival: ambulatory Limitations: no limitations History of Present Illness HPI narrative: 78-year-old with a history of CKD here with complaints of lower abdominal pain and blood in the urine. Patient states that she was having severe pain earlier this evening went to [facility] had blood work and urine analysis. Patient did not hear any results from Dr. Jaffe so she decided to come to the ER here. She presently denies any fever or chills she states that pain has much resolved she is also mentions that she is very anxious and would like to go home [place]. Denies any flank pain, fever or chills. MD elicited complaint: abdominal pain Pertinent past history: none Pain Consistency: now resolved Location: suprapubic Severity: mild Quality: aching Exacerbating factors: nothing Related Data Home Medications Medication Instructions Recorded Confirmed atenolol 25 mg PO DAILY 10/28/19 10/28/19 atorvastatin 10 mg PO DAILY 10/28/19 10/28/19 calcium carbonate [Calcium 500] 500 mg PO DAILY 10/28/19 10/28/19 cholecalciferol (vitamin D3) 25 mcg PO DAILY 10/28/19 10/28/19 [Vitamin D3] multivitamin [Multiple Vitamins] 1 tablet PO DAILY 10/28/19 10/28/19 olmesartan 40 mg PO DAILY 10/28/19 10/28/19 trazodone 50 mg PO HS 10/28/19 10/28/19 Allergies Allergy/AdvReac Type Severity Reaction Status Date / Time cephalexin [From Keflex] Allergy Hives Verified 11/12/19 00:52 Sulfa (Sulfonamide Allergy Rash Verified 11/12/19 00:52 Antibiotics) terazosin Allergy Unknown Verified 11/12/19 00:52 Review of Systems Review of Systems: All systems reviewed & are unremarkable except as noted in HPI and below ROS unobtainable: Yes unobtainable due to endotracheal tube Constitutional: Constitutional: Reports no additional constitutional complaints ENT: Reports system reviewed and no additional complaints, except as documented Cardiovascular: Cardiovascular: Reports no additional cardiovascular complaints Respiratory: Respiratory: Reports no additional respiratory complaints Gastrointestinal: Gastrointestinal: Reports no additional gastrointestinal complaints Genitourinary: Genitourinary: Reports as per HPI [facility] Past Medical History Medical History Anxiety CKD (chronic kidney disease) HTN (hypertension) Family History Family History Father Hypertension Dementia Mother Hypertension Heart attack Diabetes mellitus Social History Social History Smoking status: Never smoker Second hand tobacco smoke exposure: Yes (, father) Alcohol intake: never Substance use: never Gender identity (if verbalized by the patient): Female Spiritual care concerns: No Exam Narrative: Exam Narrative: GENERAL: Well-appearing, well-nourished, and in no acute distress. HEAD: Normocephalic, atraumatic. EYES: PERRLA and EOMI. ENT: Nares clear, no rhinorrhea or epistaxis. Mucous membranes moist. NECK: Supple. CHEST: Clear to auscultation. No respiratory distress. HEART: Regular rate and rhythm. No murmur heard. Normal peripheral pulses. ABDOMEN: Soft, nontender, nondistended, normal active bowel sounds. EXTREMITIES: Normal range of motion. No edema. SKIN: Warm, dry, no rash. NEURO: No focal deficits. Alert and oriented x3. PSYCH: Normal mood and affect. Course Vital Signs Vital signs: Vital Signs Temperature 36.9 C 11/11/19 23:11 Pulse Rate 80 11/11/19 23:11 Respiratory Rate 11/11/19 23:11 Blood Pressure 151/70 H 11/11/19 23:11 Pulse Oximetry 100 11/11/19 23:11 Temperature 36.9 C 11/11/19 23:11 Pulse Rate 80 11/11/19 23:11 Respiratory Rate 11/11/19 23:11 Blood Pre
[2019-11-12 02:20] VITALS: BP 138/72; PULSE 76; RESP 16; O2SAT 99
[2019-11-12] MEDS: CIPROFLOXACIN 250 MG TABLET PO (02:20)
== END 2019-11-12 02:21 | disposition home or self-care (01) ==
PROVIDERS: Emergency Provider Family Medicine; PCP Family Medicine
DX: N39.0 Urinary tract infection, site not specified (principal); I12.9 Hypertensive chronic kidney disease with stage 1 through stage 4 chronic kidney disease, or unspecified chronic kidney disease; N18.9 Chronic kidney disease, unspecified; F41.9 Anxiety disorder, unspecified
CPT/HCPCS: 81001; 87077; 87086; 87088; 87186; 99283; A9270

== ENCOUNTER 2023-08-14 11:06 | Emergency (ER) | payer MEDICARE, BC, SELFPAY ==
[2023-08-14] VITALS (18 sets, daily range): BP systolic 103–163; BP diastolic 55–87; PULSE 60–68; RESP 12–23; TEMP 36.4; O2SAT 96–100
--- NOTE | 2023-08-14 11:22 | ECG_ITS ---
Test Date: 2023-08-14 11:46:17 Measurements Intervals [place] Rate: 65 P: 27 AK: 203 QRS: 15 QRSD: 76 T: 22 QT: 363 QTc: 379 Interpretive Statements SINUS RHYTHM LOW QRS VOLTAGE IN PRECORDIAL LEADS [QRS DEFLECTION < 1.0 mV IN CHEST LEADS] No previous ECG available for comparison Electronically Signed On 08-14-2023 12:13:44 CDT by Erica Myers M.D.
[2023-08-14 12:03] LABS: Alanine Aminotransferase 20 U/L (6-35); Albumin Level 4.9 g/dL (3.5-5.1); Alkaline Phosphatase 61 U/L (38-126); Anion Gap 9 mmol/L (4-12); Aspartate Amino Transferase 32 U/L (14-36); Bilirubin,Total 0.5 mg/dL (0.2-1.3); Blood Urea Nitrogen 20 mg/dL (7-17); Calcium 10.3 mg/dL (8.4-10.2); Carbon Dioxide 25 mmol/L (22-30); Chloride 103 mmol/L (98-107); Estimated Glomerular Filt Rate 48; Glucose 106 mg/dL (65-110); Potassium 4.7 mmol/L (3.4-5.0); Sodium 137 mmol/L (137-145)
[2023-08-14 13:24] LABS: Magnesium 2.4 mg/dL (1.6-2.3)
--- NOTE | 2023-08-14 13:29 | ED.GENADULT ---
HPI - General Adult General Chief complaint: Recheck/Abnormal Lab/Rx Stated complaint: low sodium Time Seen by Provider: 08/14/23 11:19 History of Present Illness HPI narrative: 82-year-old female presenting to the emergency department for evaluation for a sodium recheck. Patient states her sodium was 134 yesterday and patient was called and told to present to her pet stylist. Patient came to the emergency department. Patient states she has been having some heart flutters but does have a current Holter monitor on. Patient denies any current heart fluttering, patient denies any current lightheaded dizziness or chest pain. Related Data Home Medications Medication Instructions Recorded Confirmed atenolol 50 mg tablet 25 mg PO DAILY 10/28/19 04/02/23 atorvastatin 10 mg tablet 10 mg PO DAILY 10/28/19 04/02/23 calcium carbonate (Calcium 500) 500 mg PO DAILY 10/28/19 04/02/23 cholecalciferol (vitamin D3) 25 25 mcg PO DAILY 10/28/19 04/02/23 mcg (1,000 unit) capsule (Vitamin D3) multivitamin (Multiple Vitamins 1 tablet PO DAILY 10/28/19 04/02/23 tablet) olmesartan 40 mg tablet 40 mg PO DAILY 10/28/19 04/02/23 trazodone 50 mg tablet 50 mg PO HS 10/28/19 04/02/23 Allergies Allergy/AdvReac Type Severity Reaction Status Date / Time cephalexin [From Keflex] Allergy Hives Verified 08/14/23 11:21 Sulfa (Sulfonamide Allergy Rash Verified 08/14/23 11:21 Antibiotics) terazosin Allergy Unknown Verified 08/14/23 11:21 Review of Systems Review of Systems: All systems reviewed & are unremarkable except as noted in HPI and below [facility] Past Medical History Medical History (Updated 08/14/23 @ 14:10 by Eldon Nieto MD) Anxiety CKD (chronic kidney disease) HTN (hypertension) Family History Family History Father Hypertension Dementia Mother Hypertension Heart attack Diabetes mellitus Social History Social History Smoking status: Never smoker Second hand tobacco smoke exposure: Yes (, father) Alcohol intake: never Substance use: never Lack of Transportation: No Lack of Food: Never True Current Housing: I Have Housing Concerned About Future Housing: No Difficulty Paying Gas/Electric Bills: No Difficulty Paying for Meds: No Currently Unemployed: No Education: High School Diploma/GED Difficulty w/ Childcare or Family Care: No Gender identity (if verbalized by the patient): Female Spiritual care concerns: No Exam Narrative: APPEARANCE: Well appearing, no pain, no distress, well-nourished. HEAD: normocephalic, atraumatic. EYES: PERRLA/EOMI, conjunctivae clear. NOSE: Normal no drainage EARS:TMS clear with good light reflex. THROAT: Pharynx clear, no exudate. NECK: Supple. No adenopathy, no masses. RESPIRATORY: Airway patent, respirations nonlabored. Clear to auscultation bilaterally, no rales, rhonchi, wheezing. CARDIOVASCULAR: Regular rate and rhythm without murmurs rubs or gallops. ABDOMINAL: Soft, nontender, nondistended, normal bowel sounds MUSCULOSKELETAL: Moves all extremities. Strength/ROM intact, No edema, No calf tenderness. NEURO: Alert. Cranial nerves II through XII intact. Grossly intact SKIN: Warm, dry. Normal Color Course Course Emergency Course: Patient was updated the results of her workup. Patient was comfortable the plan for discharge and close follow-up Vital Signs Vital signs: Vital Signs Temperature 97.6 F 08/14/23 11:19 Pulse Rate 68 08/14/23 11:19 Respiratory Rate 16 08/14/23 11:19 Blood Pressure 163/62 H 08/14/23 11:19 Pulse Oximetry 99 08/14/23 11:19 Temperature 97.6 F 08/14/23 11:19 Pulse Rate 66 08/14/23 14:01 Respiratory Rate 17 08/14/23 14:01 Blood Pressure 145/61 H 08/14/23 14:01 Pulse Oximetry 97 08/14/23 14:01 Medical Decision Making GILDA Narrative Medical decision m
[2023-08-14 13:57] LABS: Thyroid Stimulating Hormone Reflex 0.813 uIU/mL (0.465-4.68)
== END 2023-08-14 14:16 | disposition home or self-care (01) ==
PROVIDERS: Emergency Provider Emergency Medicine; PCP Family Medicine
DX: E87.1 Hypo-osmolality and hyponatremia (principal); I12.9 Hypertensive chronic kidney disease with stage 1 through stage 4 chronic kidney disease, or unspecified chronic kidney disease; N18.9 Chronic kidney disease, unspecified; F41.9 Anxiety disorder, unspecified; Z79.899 Other long term (current) drug therapy
CPT/HCPCS: 36415; 80053; 83735; 84443; 93005; 99283